=== PATIENT | female | born 1945 | race Caucasian/White ===

== ENCOUNTER 2017-04-02 10:55 | Day surgery (SDC) | payer MEDICARE, OTHER ==
[~2017-04-02 10:55] MED LIST: ADVAIR 50028 BLISTE1 PO; ALBUTEROL17 GM INH; MEDROL4 M2 PO; NO HOME MEDS; PREDNISONE20 MG PO; PROVENTIL HFA6.7 G1 IH; PROVENTIL HFA6.7 G1 INH; VENTOLIN HFA18 G2 INH; VICODIN 5/500 T1 TAB PO; ZITHROMAX250 M1 PO; ZITHROMAX250MG Z-PAK PO
[2017-04-02 11:48] LABS: BASO % 0.3 % (0-2); EOS % 1.6 % (0-7); EOSINOPHIL ABSOLUTE COUNT 0.2 tho/cmm (0.0-0.7); HCT-HEMATOCRIT 43.8 % (34.0-49.0); HGB-HEMOGLOBIN 14.2 gm/dl (12.0-15.5); IMMATURE GRANULOCYTES ABSOLUTE 0.04 tho/cmm (0-0.03); IMMATURE GRANULOCYTES PERCENT 0.3 % (0-0.3); LYMPH % 16.7 % (20-45); LYMPH ABSOLUTE COUNT 2.2 tho/cmm (0.8-4.5); MCH (MEAN CORPUSCULAR HGB) 25.8 pg (28.0-32.0); MCHC MEAN CORPUSCULAR HGB CONC 32.4 % (32.0-36.0); MCV (MEAN CELL VOLUME) 79.5 fl (82.0-96.0); MEAN PLATELET VOLUME 9.5 cmc (9.4-12.4); MONOCYTE ABSOLUTE COUNT 0.8 tho/cmm (0.0-1.2); NEUTROPHIL ABSOLUTE COUNT 10.1 tho/cmm (1.6-8.0); NEUTROPHIL-AUTOMATED 10.1 tho/cmm (1.6-8.0); NEUTROPHILS % 75.1 % (40-80); PLATELET COUNT 475 tho/cmm (150-450); RED BLOOD COUNT 5.51 mil/cmm (4.00-5.20); RED CELL DISTRIBUTION WIDTH 13.7 % (12.4-16.4); WHITE BLOOD COUNT 13.4 tho/cmm (4.0-10.0)
[2017-04-02 12:02] LABS: BLOOD UREA NITROGEN 10 mg/dl (6-24); CREATININE 1.04 mg/dl (0.50-1.10); eGFR VALUE FOR BLACK 63 mL/Min
== END 2017-04-02 15:20 ==
LOC: ENDOS 10:55 → SHSB 10:59
PROVIDERS: Internal Medicine Critical Care Medicine
PROC: 0B958ZX Drainage of Right Middle Lobe Bronchus, Via Natural or Artificial Opening Endoscopic, Diagnostic (ICD-10-PCS; principal; 2017-04-02)
DX: J98.11 Atelectasis (principal); J47.9 Bronchiectasis, uncomplicated; J44.9 Chronic obstructive pulmonary disease, unspecified; F17.210 Nicotine dependence, cigarettes, uncomplicated; Z79.899 Other long term (current) drug therapy; Z88.4 Allergy status to anesthetic agent; Z98.890 Other specified postprocedural states
CPT/HCPCS: J2250; J3010